=== PATIENT | male | born 1970 | race Hispanic/Latino ===

== ENCOUNTER 2016-11-08 09:28 | Observation (INO) | payer MEDICAID, OTHER ==
[2016-11-08 09:49] VITALS: TEMP 98.9
[2016-11-08] MEDS ORDERED: Sodium Chloride 0.9% 1,000 ML IV STA (10:07)
--- NOTE | 2016-11-08 10:12 | ED PDOC ---
HPI: Chest Pain Chief Complaint (Provider): Chest Pain History Per: Patient History/Exam Limitations: no limitations Onset/Duration Of Symptoms: Hrs (1) Current Symptoms Are (Timing): Still Present Severity: Moderate Pain Scale Rating Of: 5 Quality: "Pain" (tingling) Associated Symptoms: denies: Nausea, Dyspnea, Diaphoresis, Syncope Modifying Factors: None Exacerbating Factors: None Alleviating Factors: None <Patric Levy - Last Filed: 11/08/16 13:02> <Roderick Hernandes - Last Filed: 11/08/16 13:15> Time Seen by Provider: 11/08/16 09:58 Chief Complaint (Nursing): Chest Pain Additional Complaint(s): 46 year old smoker male without medical history presents to ED with left sided chest pain x 1 hr. Patient states was in usual state of health until 1 hour ago when he began to feel tingling and "muscle-like" pain in left upper chest. Denies radiation of pain, dyspnea, tightness, abdominal pain, back pain, headache, palpitations, or recent illness. Denies dizziness, weakness, or numbness/tingling of extremities. PMD: Dr. Fraire (Patric Levy) Supervising Attending Note <Patric Levy - Last Filed: 11/08/16 13:02> - Supervising Attending Note The Documented history was done by the: Physician Pullman Clerk The documented physical exam was done by the: Physician Pullman Clerk The documented procedures were done by the: Physician Pullman Clerk - Attestation: I have personally seen and examined this patient.: Yes I have fully participated in the care of the patient.: Yes I have reviewed all pertinent clinical information: Yes <Roderick Hernandes - Last Filed: 11/08/16 13:15> - Notes: Notes:: Chest pain. Coccaine abuse (Roderick Hernandes) Past Medical History Reviewed: Historical Data, Nursing Documentation, Vital Signs - Medical History PMH: No Chronic Diseases - Surgical History Surgical History: No Surg Hx - Family History Family History: States: Unknown Family Hx - Social History Current smoker - smoking cessation education provided: Yes SMOKER/PACKS PER DAY:: 1 Alcohol: None Drugs: Denies <Patric Levy - Last Filed: 11/08/16 13:02> <Roderick Hernandes - Last Filed: 11/08/16 13:15> Vital Signs: Last Vital Signs Temp 98.9 F 11/08/16 09:48 Pulse 93 H 11/08/16 09:48 Resp 18 11/08/16 09:48 BP 142/84 11/08/16 09:48 Pulse Ox 98 11/08/16 13:04 - Allergies Allergies/Adverse Reactions: Allergies Allergy/AdvReac Type Severity Reaction Status Date / Time bupropion [From Wellbutrin] Allergy RASH Verified 11/08/16 09:38 fluoxetine [From Prozac] Allergy ANAPHYLAXIS Verified 11/08/16 09:38 FRANCIS Risk Score for UA/NSTEMI - FRANCIS Risk Score Age > 64: NO 3 or more CAD Risk Factors: NO Known CAD (Stenosis greater than 50%): NO Aspirin use in past 7 days: YES Severe Angina: NO EKG ST changes greater than 0.5mm: NO FRANCIS Score: 1 Risk %: 5% <Patric Levy - Last Filed: 11/08/16 13:02> Review of Systems ROS Statement: Except As Marked, All Systems Reviewed And Found Negative Cardiovascular: Positive for: Chest Pain <Patric Levy - Last Filed: 11/08/16 13:02> Physical Exam - Reviewed Nursing Documentation Reviewed: Yes Vital Signs Reviewed: Yes - Physical Exam Appears: Positive for: Well, Non-toxic, No Acute Distress Head Exam: Positive for: ATRAUMATIC, NORMAL INSPECTION, NORMOCEPHALIC Skin: Positive for: Normal Color, Warm, Dry Eye Exam: Positive for: Normal appearance, EOMI, PERRL Neck: Positive for: Normal, Painless ROM, Supple Cardiovascular/Chest: Positive for: Regular Rate, Rhythm, Chest Non Tender Respiratory: Positive for: Normal Breath Sounds Gastrointestinal/Abdominal: Positive for: Normal Exam, Bowel Sounds, Soft. Negative for: Tenderness Back: Positive for: Normal Inspection Extremity: Positive for: Normal ROM. Negative for: Tenderness, Pedal Edema Neurologic/Psych: Positive for: Alert, farm technician II-XII, Oriented. Negative for: Motor/Sensory Deficits <Patric Levy - Last Filed: 11/08/16 13:02> - Physical Exam Cardiovascular/Chest: Positive for: Regular Rate, Rhythm, Chest Non Tender Respiratory: Positive for: Normal Breath Sounds <Roderick Hernandes Valeri - Last Filed: 11/08/16 13:15> - Laboratory Results Result Diagrams: 11/08/16 10:20 11/08/16 10:20 - ECG ECG: Positive for: Interpreted By Me ECG Rhythm: Positive for: Normal QRS, Normal ST Segment, Sinus Rhythm O2 Sat by Pulse Oximetry: 98 Pulse Ox Interpretation: Normal <Patric Levy - Last Filed: 11/08/16 13:02> - Laboratory Results Result Diagrams: 11/08/16 10:20 11/08/16 10:20 Interpretation Of Abn Labs: coccaine pos - ECG Interpretation Of Abn EKG: QTC prolonge. 2nd ekg: qtc prolonge mild increase Pulse Ox Interpretation: Normal - Radiology X-Ray: Read By Radiologist X-Ray Interpretation: No Acute Disease <HernandesRoderick Valeri - Last Filed: 11/08/16 13:15> - Progress ED Course And Treament: Time: 1000 Initial impression: 46 year old smoker male without medical history with left chest pain x 1 hour w/o radiation. No dyspnea, dizziness, focal deficits, headache. DDx includes but not limited to NSTEMI, Angina, Muscle Spasm Plan: * CBC * CMP * TROPONIN * PT/PTT/INR * EKG * CXR * NS 1L * REEVAL Time: 1025 Patient threatened staff that he was going to leave and began to rip off clothing/monitor. After discussion with patient, with parents out of the room, patient admits to increased stress due to girlfriend who has drug problems as well as admitting to using crack cocaine last night. Patient agreed to stay for further evaluation, management, and treatment. Will obtain UDS at this time. Time: 1250 Labs reviewed, urine positive for cocaine. Patient continues to had left upper chest pain. Decision to admit patient for chest pain on tele-obs. However, patient refuses to stay. Patient informed of risks and alternatives of signing out against medical advice. Patient signed AMA form. (Patric Levy) Medical Decision Making <Patric Levy - Last Filed: 11/08/16 13:02> <Roderick Hernandes - Last Filed: 11/08/16 13:15> Medical Decision Making: Pt. refuses to stay in the hospital. Is going against medical advice. Has capacity to make decisions. Is aaox3. Pain free. Aware of possible or decreased functioning from chest pain, coccaine abuse, and prolonged qt. ( Roderick Hernandes) Disposition - Disposition Disposition: Against Medical Advice Disposition Time: 13:03 <Patric Levy - Last Filed: 11/08/16 13:02> <Roderick Hernandes - Last Filed: 11/08/16 13:15> - Clinical Impression Clinical Impression: Chest pain, Prolonged QT interval, Cocaine abuse - Disposition Condition: FAIR
[2016-11-08 10:42] LABS: BASO # 0.1 K/uL (0.0-0.2); BASO % 0.8 % (0.0-2.0); EOS # 0.2 K/uL (0.0-0.7); EOS % 1.7 % (0.0-4.0); HEMATOCRIT 38.2 % (35.0-51.0); LYMPH # 3.9 K/uL (1.0-4.3); LYMPH % 33.5 % (20.0-40.0); MEAN CORPUSCULAR HEMOGLOBIN 30.4 pg (27.0-31.0); MEAN CORPUSCULAR HGB CONC 33.8 g/dL (33.0-37.0); MEAN PLATELET VOLUME 7.2 fl (7.2-11.7); MONO # 1.1 K/uL (0.0-0.8); MONO % 9.8 % (0.0-10.0); NEUT # 6.3 K/uL (1.8-7.0); NEUT % 54.2 % (50.0-75.0); NRBC % 0.1 % (0.0-0.0); RED CELL DISTRIBUTION WIDTH 13.3 % (11.5-14.5); WHITE BLOOD COUNT 11.6 K/uL (4.8-10.8)
[2016-11-08 10:52] LABS: PARTIAL THROMBOPLASTIN TIME 28.2 SECONDS (23.3-32.5)
[2016-11-08 10:56] LABS: ALB/GLOB RATIO 1.3 (1.0-2.1); ALKALINE PHOSPHATASE 76 U/L (38-126); ALT/SGPT 32 U/L (21-72); AST/SGOT 27 U/L (17-59); BILIRUBIN,TOTAL 0.4 mg/dl (0.2-1.3); BLOOD UREA NITROGEN 6 mg/dl (9-20); CALCIUM 9.5 mg/dL (8.4-10.2); CARBON DIOXIDE 26 mmol/L (22-30); CHLORIDE 102 mmol/L (98-107); GFR AFRICAN-AMERICAN > 60; GLUCOSE,RANDOM 90 mg/dL (75-110); POTASSIUM 3.9 MMOL/L (3.6-5.0); SODIUM 141 mmol/l (132-148); TOTAL PROTEIN 7.3 G/DL (6.3-8.2)
--- NOTE | 2016-11-08 11:00 | RAD ---
HISTORY: pain COMPARISON: None available. TECHNIQUE: Chest, one view. FINDINGS: LUNGS: No focal consolidation. Please note that chest x-ray has limited sensitivity for the detection of pulmonary masses. PLEURA: No significant pleural effusion identified. No definite pneumothorax . CARDIOVASCULAR: The cardiomediastinal silhouette appears within normal limits of size. OSSEOUS STRUCTURES: No acute osseous abnormality identified. VISUALIZED UPPER ABDOMEN: Unremarkable. OTHER FINDINGS: None. IMPRESSION: No focal consolidation, significant pleural effusion, or definite pneumothorax identified.
[2016-11-08 13:35] VITALS: BP 127/74; PULSE 87; RESP 16
[2016-11-08 13:36] VITALS: O2SAT 100
--- NOTE | 2016-11-09 09:19 | CARD ---
APPROVED REPORT EKG Measurement Heart [id number] <Conclusion> Normal sinus rhythm Prolonged QT Abnormal ECG
--- NOTE | 2016-11-09 09:29 | CARD ---
APPROVED REPORT EKG Measurement Heart [id number] [place] [id number] <Conclusion> Normal sinus rhythm Nonspecific T wave abnormality Prolonged QT Abnormal ECG
== END 2016-11-08 13:16 | disposition left against medical advice (07) ==
LOC: H.ER 09:28 → H.ERHOLD 12:48
PROVIDERS: ADMIT Student in an Organized Health Care Education/Training Program; ATTEND Student in an Organized Health Care Education/Training Program
DX: R07.9 Chest pain, unspecified (principal); F14.10 Cocaine abuse, uncomplicated; F17.210 Nicotine dependence, cigarettes, uncomplicated; I45.81 Long QT syndrome